=== PATIENT | male | born 1955 | race Caucasian/White ===

== ENCOUNTER → 2017-08-22 | Outpatient (CLI) | payer MEDICARE ==
[2014-12-17 10:37] VITALS: BP 144/93
[~2017-08-22] MED LIST: ASPI325T8 PO; BACL10TA PO; CARV3.122 PO; FURO40TA4 PO; HYDR-971 PO; POTA20TA4 PO; WARF4TAB7 PO
--- NOTE | 2017-08-22 14:23 | CARD ---
APPROVED REPORT EXAM: Two-dimensional and M-mode echocardiogram with Doppler and color Doppler. Other Information Quality : Good INDICATION Dyspnea Fatigue Cardiomyopathy LV Function: Mitral Valve Disease Murmur Non-Ischemic Cardiomyopathy 2D DIMENSIONS RVDd3.9 (2.9-3.5cm)Left Atrium(2D)4.8 (1.6-4.0cm) IVSd1.3 (0.7-1.1cm)Aortic Root(2D)3.5 (2.0-3.7cm) LVDd5.5 (3.9-5.9cm)LVOT Diameter2.4 (1.8-2.4cm) PWd1.3 (0.7-1.1cm)LVDs4.9 (2.5-4.0cm) FS (%) 12.5 %SV33.5 ml LVEF(%)25.0 (>50%) Aortic Valve AoV Peak Thor.111.2cm/sAoV VTI14.6cm AO Peak GR.4.9mmHgLVOT Peak Thor.73.0cm/s LVOT VTI 10.81cmAO Mean GR.3mmHg TAMMY (VMAX)2.93vk5ZJE (VTI)3.22cm2 Mitral Valve MV E Sllasete07.3cm/sMV DECEL YZHI920um MV [id number] (PHT)5.75cm2 TDI E/Lateral E'13.0 Tricuspid Valve TR P. [id number]/sRAP [id number] TR Peak Gr.94gqYyGHKV15fqAv LEFT VENTRICLE The left ventricle is mildly dilated There is mild concentric left ventricular hypertrophy. The Eject ion Fraction is 25%. There is global hypokinesis of the left ventricle. RIGHT VENTRICLE The right ventricle is dilated The right ventricular systolic function is decreased ATRIA The left atrium is mildly dilated. The right atrium size is dilated The interatrial septum is intact with no evidence for an atrial septal defect or patent foramen ovale as noted on 2-D or Doppler imagi ng. AORTIC VALVE The aortic valve is calcified but opens well. Doppler and Color Flow revealed no significant aortic r egurgitation. There is no significant aortic valvular stenosis. MITRAL VALVE The mitral valve is normal in structure There is no evidence of mitral valve prolapse. There is no mi tral valve stenosis. Doppler and Color-flow revealed moderate mitral regurgitation. TRICUSPID VALVE The tricuspid valve is normal in structure Doppler and Color Flow revealed mild to moderate tricuspid regurgitation. There is mild pulmonary hypertension. The PA pressure was estimated at 40 mmHg. There is no tricuspid valve stenosis. PULMONIC VALVE The pulmonary valve is normal in structure and function. Doppler and Color Flow revealed no pulmonic valvular regurgitation. There is no pulmonic valvular stenosis. GREAT VESSELS The aortic root is normal in size. The ascending aorta is mildly dilated at 3.7 cm. The IVC is normal in size and collapses >50% with inspiration. PERICARDIAL EFFUSION There is no evidence of significant pericardial effusion. Critical Notification Critical Value: No <Conclusion> The Ejection Fraction is 25%. There is mild concentric left ventricular hypertrophy. The left ventricle is mildly dilated The right ventricular systolic function is decreased The right ventricle is dilated The left atrium is mildly dilated. The right atrium size is dilated The aortic valve is calcified but opens well. Doppler and Color Flow revealed no significant aortic regurgitation. Doppler and Color-flow revealed moderate mitral regurgitation. Doppler and Color Flow revealed mild to moderate tricuspid regurgitation. There is mild pulmonary hypertension. The PA pressure was estimated at 40 mmHg. The pulmonary valve is normal in structure and function. The ascending aorta is mildly dilated at 3.7 cm. There is no evidence of significant pericardial effusion.
== END | disposition home or self-care (01) ==
LOC: ECHO 09:29
PROVIDERS: ATTEND Internal Medicine Cardiovascular Disease
DX: I08.1 Rheumatic disorders of both mitral and tricuspid valves (principal); I27.20 Pulmonary hypertension, unspecified; I42.9 Cardiomyopathy, unspecified; R06.00 Dyspnea, unspecified
CPT/HCPCS: 93306